=== PATIENT | male | born 1970 | race Caucasian/White ===

== ENCOUNTER 2017-10-16 08:57 | Day surgery (SDC) | payer OTHER ==
[~2017-10-16] VITALS: Ht 182.9 cm; Wt 71.3 kg
[~2017-10-16 08:57] MED LIST: ACET325 PO; ALBU90I INH; ALBU90OI INH; AMOCLA500 PO; AMOCLA875 PO; AMOX500 PO; AZIT100SU PO; AZIT500 PO; BENZ100A PO; CEPH500 PO; CIPR500 PO; CRUTCH4 USE; CYCL10 PO; Cipro500 MG PO; ERYT.5TO OS; Flagyl500 MG PO; HYDACE5 PO; HYDGUAL120 PO; IBUP400 PO; IBUP600 PO; IBUP800 PO; Monodox100 MG PO; NAPR500 PO; NEOCOLOTSU BOTHEARS; Norco 10-325 T1 EACH PO; Norco 5-325 Ta1 EACH PO; ONDA4 PO; PENVK500 PO; PRED20 PO; PROM25 PO; Pepto-Bism525 MG/15 PO; Percocet 10-321 EACH PO; Prednisone20 MG PO; RXHYDGUAS PO; SPACE CHAMBER1 EACH MC; SULTRIDS PO; TRAM50 PO; Ultram50 MG PO
== END 2017-10-16 15:20 | disposition home or self-care (01) ==
LOC: ORSCSDS 08:57
PROVIDERS: Internal Medicine Gastroenterology
PROC: 0DBH8ZX Excision of Cecum, Via Natural or Artificial Opening Endoscopic, Diagnostic (ICD-10-PCS; principal; 2017-10-16 14:30)
DX: Z12.11 Encounter for screening for malignant neoplasm of colon (principal); D12.0 Benign neoplasm of cecum; K64.8 Other hemorrhoids; K57.30 Diverticulosis of large intestine without perforation or abscess without bleeding; F17.210 Nicotine dependence, cigarettes, uncomplicated; Z86.010 Personal history of colon polyps; Z79.899 Other long term (current) drug therapy
CPT/HCPCS: 88305; J7120

== ENCOUNTER 2019-12-01 16:35 | Inpatient (IN) | payer OTHER ==
[~2019-12-01] VITALS: Ht 177.8 cm; Wt 71.2 kg
[2019-12-01 17:26] LABS: BASOPHILS ABSOLUTE AUTO 0.05 K/mm3 (0.00-0.23); BASOPHILS PERCENT AUTO 0 % (0-2); EOSINOPHILS ABSOLUTE AUTO 0.03 K/mm3 (0.00-0.68); EOSINOPHILS PERCENT AUTO 0 % (0-6); Hematocrit 43.4 % (37.0-53.0); Hemoglobin 14.1 g/dL (13.5-17.5); IMMATURE GRAN ABSOLUTE AUTO 0.05 K/mm3 (0.00-0.10); IMMATURE GRAN PERCENT AUTO 0 % (0-1); LYMPHOCYTES ABSOLUTE AUTO 3.73 K/mm3 (0.84-5.20); LYMPHOCYTES PERCENT AUTO 24 % (21-46); MONOCYTES ABSOLUTE AUTO 0.77 K/mm3 (0.16-1.47); MONOCYTES PERCENT AUTO 5 % (4-13); Mean Corpuscular HGB 28.5 pg (26.0-34.0); Mean Corpuscular HGB Conc 32.5 g/dL (31.5-36.5); Mean Corpuscular Volume 88 fL (80-100); Mean Platelet Volume 8.9 fL (9.1-12.4); NEUTROPHILS ABSOLUTE AUTO 11.09 K/mm3 (1.96-9.15); NEUTROPHILS PERCENT AUTO 71 % (41-73); Platelet Count 397 K/mm3 (150-400); RDW Standard Deviation 48.4 fL (35.1-46.3); Red Blood Cell Count 4.95 M/mm3 (4.30-5.90); White Blood Cell Count 15.72 K/mm3 (4.00-11.30)
[2019-12-01 17:27] LABS: Source, Urine Catheter
[2019-12-01 17:31] LABS: Appearance, Urine Clear (Clear); Bilirubin, Urine Neg (Neg); Blood, Urine Neg (Neg); Color, Urine Pale Yellow (P-Yellow); Glucose Qualitative, Urine Neg (Neg); Ketones, Urine Neg (Neg); Leukocyte Esterase, Urine Neg (Neg); Nitrite, Urine Neg (Neg); Protein, Urine Neg (Neg); Urobilinogen, Urine NORM (Normal)
[2019-12-01 17:48] LABS: Alanine Aminotransfer (ALT/SGP 43 U/L (12-78); Albumin, Blood 4.1 g/dL (3.4-5.0); Albumin/Globulin Ratio 1.2 (0.8-1.8); Alk Phos 73 U/L (50-136); Anion Gap 6 mmol/L (6-16); Aspartate Aminotrans (AST/SGOT 26 U/L (12-37); Bilirubin, Total 0.1 mg/dL (0.1-1.0); Blood Urea Nitrogen 15 mg/dL (8-24); Bun/Creatinine Ratio 15.8 (12.0-20.0); CO2, Blood 19 mmol/L (21-32); Calcium, Blood 8.8 mg/dL (8.5-10.1); Chloride, Blood 120 mmol/L (98-108); Creatinine, Blood 0.95 mg/dL (0.60-1.20); Globulin, Blood 3.4 g/dL (2.2-4.0); Glomerular Filtration Rate >60 (60-); Glucose, Blood 131 mg/dL (70-99); Potassium, Blood 4.6 mmol/L (3.5-5.5); Sodium, Blood 145 mmol/L (136-145); Total Protein, Blood 7.5 g/dL (6.4-8.2)
[2019-12-01 17:55] LABS: Ethanol (Alcohol), Blood, Med 363 mg/dL
[2019-12-01 17:56] LABS: Salicylate 2.4 mg/dL (2.8-20.0)
[2019-12-01 17:57] LABS: Acetaminophen, Random <2.0 ug/mL (10.0-30.0)
[2019-12-01 20:09] LABS: PCO2 Arterial 36.9 mmHg (35-45); PO2 Arterial 105 mmHg (80-100)
[2019-12-01 20:10] LABS: pH Blood Arterial 7.27 (7.35-7.45)
--- NOTE | 2019-12-01 20:50 | NUR ---
PT ARRIVES TO ICU 10 FROM ER POST INTUBATION AND TRAUMA SYSTEM ENTRY. HE IS SEDATED WITH PROPOFOL AT 40 MCG/KG/MIN AND PER HOPPER FILLER, RECEIVED ATIVAN AND FENTANYL 50 MCG PRIOR TO TRANSFER FROM ER TO ROOM HE AWOKE IN ER AND WAS EXTREMTELY AGITATED NEARLY EXTUBATING HIMSELF. ON ARRIVAL TO ROOM HE APPEARS CALM WITH RELAXED EXTREMITIES HOWEVER WITH TRANSFER TO BED HE BECOMES AGITATED, REACHING FOR ET TUBE AND THRASHING IN BED, FENTANYL ADMIN BY HOPPER FILLER. VENT SETTINGS ARE AC 16, TV 500, PEEP 5 AND FIO2 30%, LUNGS ARE DIM OTHERWISE CLEAR THROUGHOUT, SATS ARE UPPER 90S, RATE 16 FOLLOWING TRANSFER TO BED, 8.0 ETT 27 CM AT TEETH. HRR, SINUS NOTED ON MONITOR, RATE 70S, SBP 95, MAP MAINTAINED GREATER THAN 65 AT THIS TIME, WILL MONITOR AND TITRATE PROPOFOL DOWN TOLERATED. OG IN PLACE, CLAMPED AT THIS TIME, BROWN DRAINAGE IS NOTED IN TUBING, HYPOACTIVE BOWEL TONES PRESENT X 4, ABD SOFT, NO GRIMACING WITH PALPATION. TEMP PROBE LEACH IN PLACE DRIANING CLEAR YELLOW URINE TO GRAVITY. BILAT SOFT WRIST RESTRAINTS IN PLACE, SKIN TO HANDS PWD, BRISK CAP REFILL, WILL CONT TO MONITOR.
[2019-12-01 21:05] LABS: U Amphetamine Screen Not Detected; U Barbituate Screen Not Detected; U Benzodiazapine Screen Not Detected; U Buprenorphine Screen Not Detected; U Cannabinoids Screen Not Detected; U Cocaine Screen Not Detected; U Methadone Screen Not Detected; U Methamphetamine Screen Not Detected; U Opiates Screen Not Detected; U Oxycodone Screen Not Detected; U Phencyclidine Screen Not Detected; U Propoxyphene Screen Not Detected
[2019-12-01 23:22] LABS: PCO2 Venous 41.3 mmHg (38-42); PO2 Venous 146 mmHg (38-42); pH Blood Venous 7.24 (7.34-7.37)
[2019-12-01 23:23] LABS: Base Excess Venous -9.9 mmol/L
[2019-12-02 00:15] LABS: Anion Gap 4 mmol/L (6-16); Blood Urea Nitrogen 13 mg/dL (8-24); Bun/Creatinine Ratio 15.9 (12.0-20.0); CO2, Blood 20 mmol/L (21-32); Calcium, Blood 7.4 mg/dL (8.5-10.1); Chloride, Blood 123 mmol/L (98-108); Creatinine, Blood 0.82 mg/dL (0.60-1.20); Glomerular Filtration Rate >60 (60-); Glucose, Blood 115 mg/dL (70-99); Salicylate <1.7 mg/dL (2.8-20.0); Sodium, Blood 147 mmol/L (136-145)
[2019-12-02 06:13] LABS: BASOPHILS ABSOLUTE AUTO 0.03 K/mm3 (0.00-0.23); BASOPHILS PERCENT AUTO 0 % (0-2); EOSINOPHILS ABSOLUTE AUTO 0.07 K/mm3 (0.00-0.68); EOSINOPHILS PERCENT AUTO 1 % (0-6); Hematocrit 38.2 % (37.0-53.0); Hemoglobin 12.2 g/dL (13.5-17.5); IMMATURE GRAN ABSOLUTE AUTO 0.05 K/mm3 (0.00-0.10); IMMATURE GRAN PERCENT AUTO 0 % (0-1); LYMPHOCYTES ABSOLUTE AUTO 2.55 K/mm3 (0.84-5.20); LYMPHOCYTES PERCENT AUTO 18 % (21-46); MONOCYTES PERCENT AUTO 8 % (4-13); Mean Corpuscular HGB 28.4 pg (26.0-34.0); Mean Corpuscular HGB Conc 31.9 g/dL (31.5-36.5); Mean Corpuscular Volume 89 fL (80-100); Mean Platelet Volume 8.6 fL (9.1-12.4); NEUTROPHILS ABSOLUTE AUTO 10.37 K/mm3 (1.96-9.15); NEUTROPHILS PERCENT AUTO 73 % (41-73); Platelet Count 312 K/mm3 (150-400); RDW Coefficient Variation 15.8 % (11.7-14.2); RDW Standard Deviation 51.6 fL (35.1-46.3); White Blood Cell Count 14.27 K/mm3 (4.00-11.30)
[2019-12-02 06:27] LABS: International Normalized Ratio 0.94; Prothrombin Time Results 10.1 Sec (9.7-11.5)
[2019-12-02 06:34] LABS: Alanine Aminotransfer (ALT/SGP 39 U/L (12-78); Albumin, Blood 3.1 g/dL (3.4-5.0); Albumin/Globulin Ratio 1.1 (0.8-1.8); Alk Phos 53 U/L (50-136); Anion Gap 3 mmol/L (6-16); Aspartate Aminotrans (AST/SGOT 28 U/L (12-37); Bilirubin, Total 0.1 mg/dL (0.1-1.0); Blood Urea Nitrogen 11 mg/dL (8-24); Bun/Creatinine Ratio 15.8 (12.0-20.0); CO2, Blood 23 mmol/L (21-32); Calcium, Blood 7.5 mg/dL (8.5-10.1); Chloride, Blood 119 mmol/L (98-108); Globulin, Blood 2.9 g/dL (2.2-4.0); Glomerular Filtration Rate >60 (60-); Glucose, Blood 103 mg/dL (70-99); Magnesium, Blood 2.4 mg/dL (1.6-2.4); Potassium, Blood 3.9 mmol/L (3.5-5.5); Sodium, Blood 145 mmol/L (136-145)
--- NOTE | 2019-12-02 06:42 | NUR ---
PT ARRIVED TO UNIT SEDATED AND INTUBATED WITH PROPOFOL AT 40 MCG/KG/MIN, WAS AGITATED AND THRASHING IN BED ON TRANSFER FROM [facility], POISER BALANCE MEDICATED PT WITH FENTANYL AND PROPOFOL INITIALLY INCREASED TO 50 MCG/KG/MIN, BLOOD PRESSURES DID NOT TOLERATE DOSE AND PROPFOL WAS TITRATED DOWN IN INCREMENTS OF 5-10 MCG/MIN TO 15 MCG/MIN, PT TOLERATED THIS DOSE FOR APPROXIMATELY 45 MINUTES PRIOR TO SUDDEN INCREASE IN AGITATION AND THRASHING, PULLING HARD AGAINST WRIST RESTRAINTS AND MAKING ATTEMPTS TO REACH FOR ETT, ATIVAN ADMINISTERED AND PROPOFOL HAS BEEN TITRATED UP SLOWLY TO 70 MCG/KG/MIN OF THIS TIME. FOLLOWING THIS EPISODE, PT HAS RECEIVED ATIVAN AND FENTANYL EVERY 2 HOURS PER ORDERS, ALTERNATING HOURS OF ADMINISTRATION. VENT SETTINGS CONTINUE AC 16, TV 500, FIO2 30% AND PEEP 5, SATS MAINTAIN UPPER 90S AND PT RATE 16-20. SINUS RHYTHM CONTINUES, RATE 70-90S, PRESSURES IMPROVING, SKIN REMAINS PWD, NO EDEMA IS NOTED. HYPOACTIVE BOWEL TONES CONT, OG REMAINS IN PLACE, NO GRIMACING WITH PALPATION. TEMP PROBE LEACH DRAINING CLEAR YELLOW URINE TO GRAVITY.
[2019-12-02 07:22] LABS: PCO2 Arterial 34.8 mmHg (35-45); PO2 Arterial 87.1 mmHg (80-100); pH Blood Arterial 7.36 (7.35-7.45)
--- NOTE | 2019-12-02 07:33 | NUR ---
ASSUMED CARE RECEIVED REPORT FROM AVIVA DOTSON. PT IS LYING IN BED INTUBATED 8.0 ETT, 28 AT THE TEETH. VENT SETTINGS: AC16/500/5/30%. CURRENTLY PROPOFOL IS INFUSING AT 70 MCG/KG/MIN, AND LR AT 100 ML/HR. UPON STARTING MY SHIFT THE PT WAS AGITATED AND THRASHING IN BED, HE RECEIVED ATIVAN FROM THE [facility] NURSE, AND THEN RECEIVED SOME FENTANYL FROM ME SHORTLY AFTER. CURRENTLY CALM, BUT RESPONSIVE TO ANY NOXIOUS OR (LOUD) VERBAL STIMULI. HE IS BREATHING OVER THE VENT WITH A RR OF 21-22. PT IS CURRENTLY IN SINUS RHYTHM WITH A RATE IN THE 90's. BP IS STABLE. PT HAS TEMP OF 99.5. PT HAS PATENT LEACH, DRAINING YELLOW/GREEN URINE. HE IS RESTRAINED WITH BILATERAL SWB. BED IS LOW AND LOCKED.
--- NOTE | 2019-12-02 10:59 | NUR ---
UPDATE START OF SHIFT TILL ABOUT 929 PT WAS AGITATED AND THRASHING IN BED DESPITE PROPOFOL AT 70MCG/KG/MIN, AND HIS PRN FENTANYL AND ATIVAN IV. I TALKED TO DR. DAILEY FOR A PRECEDEX GTTP WHICH WE STARTED AND TITRATED UP TO 0.6 MCG/KG/HR, UNTIL HE BECAME HYPOTENSIVE, THEN I WENT DOWN TO 0.5 MCG/KG/HR, AND DOWN TITRATED THE PROPOFOL. HE IS CURRENTLY AT 45 MCG/KG/MIN. PT WAS FEBRILE THIS MORNING WITH A TEMP OF 99.5, I PLACED A FAN ON HIM, AND ALONG WITH INCREASING SEDATION - HE COOLED OFF WELL. HE SEEMS TO HAVE BROKEN A TOOTH (PRIOR TO THIS SHIFT - PER DR. DAILEY, NOT SURE WHEN), WHICH MAY BE A REASON WHY HE IS AGITATED. FENTANYL WAS GIVEN TWICE ALREADY, AND DR. DAILEY INCREASED THE DOSE AND FREQUENCY.
--- NOTE | 2019-12-02 16:02 | NUR ---
UPDATE/SKIN/AGITATION-SEDATION VIDYA, THE RT, AND I DECIDED TO CHANGE OUT THE ETT STABILIZATION DEVICE DUE TO THE ABRASIONS/WOUNDS/SKIN ISSUES ON HIS OUTER-UPPER LIP, LEFT CHEEK AND INNER-UPPER LIP. WHEN WE CHANGED IT (PICS IN CHART) THE CUTS/ABRASIONS/WOUNDS(?) WERE PRETTY "FRESH", WHAT APPEARS TO BE PURULENT DRAINAGE WAS OOZING OUT OF THE INNER-UPPER LIP CUT. THE OUTER-UPPER LIP ONE WAS BLEEDING A LITTLE BIT, MOST LIKELY DUE TO THE PROCESS OF REMOVING THE OLD STABILIZATION DEVICE, AND CLEANING THE AREA. I HAD TO SHAVE AND WASH THE AREA, HIS MUSTACHE WAS VERY CRUSTY/ROCK HARD WITH DRIED BLOOD. IT WAS A VERY MOIST AREA AROUND IT, HOWEVER, FROM SALIVA, SWEAT, BLOOD AND WOUND EXUDATE. I APPLIED ANTIBIOTIC CREAM TO EACH OF THE ABOVE LISTED WOUNDS. I THEN PUT GAUZE ON THE UPPER LIP A BARRIER FROM THE NEW ETT STABILIZATION DEVICE. PT WAS PREMEDICATED WITH 100MCG FENT, AND 2MG ATIVAN. HE STAYED RELATIVELY STILL FOR THE 'PROCEDURE'. TOWARDS THE END HE STARTED TO GET RESTLESS, AND AGITATED. AFTER LEAVING HIM ALONE FOR A BIT - HE CALMED DOWN. WILL PASS ALONG TO BIOMEDICAL EQUIPMENT TECH THAT IT WOULD BE IMPORTANT TO KEEP AN EYE ON THESE WOUNDS AND TO CLEAN WITH SWITCH OUTS OF THE ETT STABILIZATION DEVICE.
--- NOTE | 2019-12-02 17:00 | NUR ---
UPDATE TEMP IS 101.3, AND IS MOVING UP AND DOWN SORT OF QUICKLY. I DID A TEMPORAL TEMP AND IT WAS 99.2. PT DOESN'T FEEL 'THAT WARM'. BUT IS A LITTLE FLUSHED, AND MOIST FROM SWEAT. I PUT SOME ICE PACKS IN HIS AXILLARY AREA, AND LOWER ABDOMEN, ALONG WITH A 'MAKESHIFT AC' WHICH INCLUDES A TUB OF ICE WATER AND A FAN THAT BLOWS THE COOL AIR TOWARDS THE PATIENT... WILL CONTINUE TO MONITOR.
--- NOTE | 2019-12-02 18:16 | NUR ---
SHIFT SUMMARY PT REMAINS INTUBATED ON VENTILATOR: SPONTANEOUS 01/27, 30% TAKING ADEQUATE TIDAL VOLUMES, WITH A NORMAL RR (12-22). IT HAS BEEN A BALANCE GAME FOR MAJORITY OF DAY MAINTAINING MAP > 65 WITH ADEQUATE SEDATION. SINCE EARLY AFTERNOON (~1300) PT HAS HAD ADEQUATE MAP, WITH SUFFICIENT SEDATION WITH PROPOFOL (45-50 MCG/KG/HR), AND PRECEDEX (0.6-0.7 MCG/KG/HR). CURRENTLY 45, AND 0.7 RESPECTIVELY. NOW THE ISSUE IS HIS TEMPERATURE. AROUND 1300 HIS TEMP INCREASED BACK TO 99.1 (AFTER BEING NORMOTHERMIC SINCE AROUND 1000 THIS MORNING). FROM THERE HE STEADILY INCREASED TO WHAT HE CURRENTLY IS NOW: 102.2. DURING THAT TIME - I APPLIED ICE PACKS: ONE NEAR HIS LOWER ABDOMEN, AND IN HIS AXILLARY AREAS. I HAVE A COLD RAG ON HIS HEAD, AND A MAKESHIFT AC FAN BLOWING ON HIM (ICE WATER IN A TUB, WITH A FAN BLOWING IT AT THE PT). I ALSO GOT AN ORDER AND GAVE IT TO HIM PER TUBE (650MG) ABOUT 40-45MINS AGO WITH NO EFFECT. ASHLIE AWARE. HE GOT A BANANA BAG TODAY. LR MAINTENCE FLUIDS WERE DC'D WHEN THE BANANA BAG STARTED. HES MAKING ADEQUATE URINE OUTPUT. HE HAS STRONG PEDAL PULSES, AND EXTREMETIES ARE WARM (NORMAL) TO TOUCH. EXTERNALLY HE DOESN'T FEEL LIKE HE HAS A FEVER. WE CHANGED THE ETT STABILIZATION DEVICE, AND DID SOME WOUND CARE ( WELL TAKEN PICTURES) OF THE WOUNDS ON HIS LIP, IN HIS LIP, AND ON HIS LEFT CHEEK. I WILL PASS ON TO NOC SHIFT NURSE TO KEEP THIS GOING. BED IS LOW AND LOCKED.
--- NOTE | 2019-12-02 20:10 | NUR ---
ASSUMED CARE AT 1915 PT INTUBATED AND LAYING IN BED. SPONTANIOUS VENT SETTING PS 8, PEEP 5. FIO2 30. PROPOFOL AT 45 MCG/KG/MIN. PRECIDEX 0.7 MCG/KG/HR. VHP 25 ML/HR FLUSHING 30ML Q4HR. LEACH PATENT AND DRAINING TO GRAVITY. PT EASILY AROUSABLE AND AGITATED AND PULLING AGENST BILATERAL SOFT RESTRAINTS. PT ENDED WITH ONE LEG OVER THE SIDE OF THE BED. PT MEDICATED WITH PRN FOR AGITATION.
--- NOTE | 2019-12-03 01:10 | NUR ---
AGITATION AT APROX. 0050 PT WAS FOUND EXTREMELY AGITATED AND PULLING AT RESTRAINTS AND TUBES. OG TUBE WAS FOUND ON THE FLOOR. THE VENTILATOR TUBEING BECAME DISCONNECTED FROM THE ET TUBE. PROPOFOL INCREASED TO 70 MCG/KG/MIN AT THIS TIME. PT MEDICATED WITH 2 MG OF ATIVAN AND 100MCG OF FENTANYL. DR HERNANDEZ NOTIFIED. OREDERS RECIEVED TO INCREASE PRECEDEX TO 1.4 MCG/KG/HR IF NEEDED. ALSO OK TO LEAVE OG OUT AT THIS TIME. PLAN TO POSSIBLY EXTUBATE IN AM.
[2019-12-03 03:56] LABS: BASOPHILS ABSOLUTE AUTO 0.04 K/mm3 (0.00-0.23); BASOPHILS PERCENT AUTO 0 % (0-2); EOSINOPHILS ABSOLUTE AUTO 0.02 K/mm3 (0.00-0.68); EOSINOPHILS PERCENT AUTO 0 % (0-6); Hematocrit 37.6 % (37.0-53.0); Hemoglobin 12.3 g/dL (13.5-17.5); IMMATURE GRAN ABSOLUTE AUTO 0.12 K/mm3 (0.00-0.10); IMMATURE GRAN PERCENT AUTO 1 % (0-1); LYMPHOCYTES ABSOLUTE AUTO 1.35 K/mm3 (0.84-5.20); LYMPHOCYTES PERCENT AUTO 7 % (21-46); MONOCYTES ABSOLUTE AUTO 1.29 K/mm3 (0.16-1.47); MONOCYTES PERCENT AUTO 6 % (4-13); Mean Corpuscular HGB 28.5 pg (26.0-34.0); Mean Corpuscular HGB Conc 32.7 g/dL (31.5-36.5); Mean Corpuscular Volume 87 fL (80-100); Mean Platelet Volume 8.8 fL (9.1-12.4); NEUTROPHILS ABSOLUTE AUTO 17.91 K/mm3 (1.96-9.15); NEUTROPHILS PERCENT AUTO 86 % (41-73); Platelet Count 267 K/mm3 (150-400); RDW Coefficient Variation 15.1 % (11.7-14.2); RDW Standard Deviation 48.7 fL (35.1-46.3); Red Blood Cell Count 4.31 M/mm3 (4.30-5.90); White Blood Cell Count 20.73 K/mm3 (4.00-11.30)
[2019-12-03 04:18] LABS: Anion Gap 4 mmol/L (6-16); Blood Urea Nitrogen 12 mg/dL (8-24); Bun/Creatinine Ratio 15.7 (12.0-20.0); CO2, Blood 25 mmol/L (21-32); Calcium, Blood 7.7 mg/dL (8.5-10.1); Chloride, Blood 109 mmol/L (98-108); Creatinine, Blood 0.77 mg/dL (0.60-1.20); Glomerular Filtration Rate >60 (60-); Glucose, Blood 136 mg/dL (70-99); Magnesium, Blood 2.2 mg/dL (1.6-2.4); Phosphorus, Blood 2.7 mg/dL (2.5-4.9); Sodium, Blood 138 mmol/L (136-145)
--- NOTE | 2019-12-03 06:01 | NUR ---
END OF SHIFT SUMMARY PT INTUBATED AND LAYING IN BED. VENTILATOR SPONTANIOUS SETTINGS PS 8, PEEP 5, FIO2 30. PROPOFOL INFUSING AT 50 MCG/KG/MIN. PRECIDEX INFUSING AT 1 MCG/KG/HR. VHP NO LONGER INFUSING DUE TO PATIENT PULLING OG TUBE OUT. LEACH PATENT AND DRAINING TO GRAVITY. TEMP MAX 102.9. TEMP NOW 99.5. SBP 70'S-90'S. HR 80'S-90'S. PATIENT MEDICATED WITH 50-100 MCG OF FENTANYL WHEN AGITATED AND PULLING AT RESTRAINTS. WILL CONTINUE TO MONITOR UNTIL REPORT IS GIVEN TO DAY RN.
--- NOTE | 2019-12-03 07:30 | NUR ---
ASSUMED CARE BEDSIDE REPORT RECIEVED. PT IS INTUBATED AND SEDATED. VENT SETTING SPONTANEOUS PRESSURE SUPPORT 8/5, FIO2 30%. PT IS RESTLESS AT TIMES AND THRASHES SIDE TO SIDE IN BED, OTHERWISE PT IS CALM WITH PROPOFOL AT 50 MCG/KG/MIN AND PRECEDEX AT 1 MCG/KG/MIN. NS INFUSING TKO. LEACH TEMP PROBE IN PLACE WITH YELLOW URINE OUTPUT NOTED. SBW RESTRAINTS IN PLACE. PT MOVING ALL EXTREMITIES WELL AND PULLS AT RESTRAINTS. PT WITH ABRASIONS AND SWELLING TO CHEEKS AND UPPER LIP. WILL CONTINUE TO MONITOR.
--- NOTE | 2019-12-03 10:49 | NUR ---
EXTUBATION PT EXTUBATED AT 1040 BY RT ARDEN. PT PLACED ON 2L O2 NC. PT WITH COPIOUS LUNA SECRETIONS. PT ABLE TO COUGH AND CLEAR AIRWAY WELL. SPO2 >94%. PT ORIENTED TO EVENT. PT DENIES SUICIDAL IDEATION AT THIS TIME AND STATES HE WAS NOT ATTEMPTING SUICIDE OR SELF HARM. WILL CONTINUE TO MONITOR. BED ALARM ON.
--- NOTE | 2019-12-03 11:12 | NUR ---
FAMILY UPDATE PT GAVE VERBAL PERMISSION TO UPDATE KENYETTA HULL. KURTIS CALLED AND UPDATED TO PT CONDITION AND PLAN OF CARE. PT REMAINS CALM AND COOPERATIVE AT THIS TIME.
--- NOTE | 2019-12-03 17:47 | NUR ---
SHIFT SUMMARY PT DID WELL THIS SHIFT. PT HAS REMAINED STABLE AFTER EXTUBATION. PT HAS REMAINED ON 2L O2 NC AND HAS BEEN ABLE TO COUGH UP SECRETIONS WELL. PT HAS REMAINED CALM AND COOPERATIVE. PT IMPULSIVE AT TIMES. BED ALARM ON. PRECEDEX INFUSING AT 1 MCG/KG/MIN AND NS TKO. LEACH REMAINS IN PLACE WITH LARGE AMOUNT OF YELLOW URINE OUTPUT NOTED. PT FACIAL WOUNDS REMAIN UNCHANGED AND UPPER LIP SWELLING REMAINS. PT UNABLE TO TOLERATE PO FLUIDS DUE TO FACIAL SWELLING. PT HAS COMPLAINED OF PAIN TO FACE AND STERNUM. PT MED PER EMAR. PT FAMILY KURTIS HAS BEEN UPDATED MULTIPLE TIMES THROUGHOUT THE SHIFT. WILL CONTINUE TO MONITOR AND REPORT OFF TO ONCOMING RN.
--- NOTE | 2019-12-03 19:00 | NUR ---
ASSUMED CARE ASSUMED CARE AT THIS TIME. SLEEPING WHEN UNDISTURBED. ROUSES EASILY TO VERBAL STIMULI. ORIENTED TO SELF, PLACE, MONTH/YEAR. UNSURE OF DATE AND TIME. DOESN'T REMEMBER EVENTS LEADING UP TO COMING TO THE HOSPITAL. DENIES SUICIDAL IDEATION/INTENT. CALM AND COOPERATIVE, BUT DOES BECOME SLIGHTLY ANXIOUS WITH PAIN. PRECEDEX CONTINUES @ 1.0MCG/KG/HR. REPOSITIONS SELF IN BED. C/O PAIN IN BACK/STERNUM AND C/O HEADACHE. DENIES NAUSEA. RESPIATIONS SHALLOW, BUT UNLABORED. MOIST COUGH NOTED. VSS. MONITOR SHOWS NSR, RATE 70s. AFEBRILE. LEACH PATENT AND DRAINING CLEAR YELLOW URINE. SEE SHIFT ASSESSMENT FOR FULL ASSESSMENT.
--- NOTE | 2019-12-03 21:28 | NUR ---
PAIN/URINE OUTPUT PT CONTINUES TO C/O MODERATE PAIN. STATES PAIN MEDICATION HELPS BUT DOESN'T LAST VERY LONG. DR. DAILEY NOTIFIED AND NEW ORDER RECEIVED TO INCREASE FREQUENCY OF FENTANYL TO Q2H PRN. ALSO NOTIFIED OF DECREASE IN URINE OUTPUT AND PT'S INABILITY TO SAFELY TAKE PO FLUIDS. WILL START NS @ 75CC.HR.
[2019-12-04 03:45] LABS: Anion Gap 5 mmol/L (6-16); Blood Urea Nitrogen 8 mg/dL (8-24); Bun/Creatinine Ratio 12.1 (12.0-20.0); CO2, Blood 24 mmol/L (21-32); Calcium, Blood 7.5 mg/dL (8.5-10.1); Chloride, Blood 113 mmol/L (98-108); Creatinine, Blood 0.66 mg/dL (0.60-1.20); Glomerular Filtration Rate >60 (60-); Glucose, Blood 119 mg/dL (70-99); Magnesium, Blood 2.1 mg/dL (1.6-2.4); Phosphorus, Blood 1.9 mg/dL (2.5-4.9); Sodium, Blood 142 mmol/L (136-145)
--- NOTE | 2019-12-04 06:12 | NUR ---
SHIFT SUMMARY NO ACUTE CHANGES DURING SHIFT. SLEPT INTERMITTENTLY AND ROUSES EASILY TO STIMULI. SEDATED WITH PRECEDEX BETWEEN 0.8-1.1MCG/KG/HR. NOW INFUSING @ 0.8MCG/KG/HR. MEDICATED WITH FENTANYL X 3 DOSES FOR C/O 8-04/03 PAIN WITH SOME RELIEF. PT COUGHS WITH ANY PO INTAKE. REMAINED NPO T/O NOC D/T INCREASED ASPIRATION RISK. LEACH PATENT AND DRAINING CLEAR YELLOW URINE. NS INFUSING AT 75CC/HR PER ORDER. BED ALARM REMAINS ON. VSS T/O NOC. WILL REPORT TO ONCOMING RN WHEN AVAILABLE.
--- NOTE | 2019-12-04 07:32 | NUR ---
ASSUMED CARE REPORT RECIEVED. PT IS RESTING QUIETLY UPON ENTERING ROOM. PT AROUSES TO VERBAL STIMULI. PT IS SLOW TO RESPOND AND VOICE IS QUIET. PT ANSWERS QUESTIONS APPROPRIATELY. PT FORGETFUL AT TIMES. PT COMPLAINS OF PAIN TO FACIAL WOUNDS AND STERNUM. VITAL SIGNS STABLE. PT ON ROOM AIR. PRECEDEX INFUSING AT 0.5 MCG/KG/HR AND NS TKO. LEACH IN PLACE DRAINING YELLOW URINE. PT ANXIOUS AT TIMES, OTHERWISE CALM. WILL CONTINUE TO MONITOR.
--- NOTE | 2019-12-04 17:23 | NUR ---
TRANSFER TO [facility] PT DID WELL THIS SHIFT. PRECEDEX HAS REMAINED ON STANDBY SINCE THIS AM. PT HAS REMAINED ALERT, ORIENTED, AND COOPERATIVE. ALL PT BELONGINGS TAKEN WITH PT. PT TRANSFERED OUT TO [facility] 9 AT 1715 WITH OIL BOILER VIA BED.
--- NOTE | 2019-12-04 18:05 | NUR ---
SHIFT NOTE PT ARRIVES FROM ICU THIS EVENING, PT WITH SWELLING TO UPPER AND LOWER LIPS, SCABBING AND ABRASIONS TO FACE T/O. PT WITH PAINFUL SWALLOWING AND CHEWING IS ON PUREE DIET BECAUSE OF FACIAL AND TOOTH TRAUMA. SEVERAL CRACKED TEETH REPORTED. PT HAS NEGATIVE CIWA, STS THAT HE DRINKINS "A FEW TIMES A WEEK", STS THAT HE HAS NOT HAD ANY WITHDRAWLS IN HIS LIFE. PT WITH SLIGHT FEVER WAS TREATED WITH TYLENOL SUSPENSION UPON ARRIVAL FROM ICU
--- NOTE | 2019-12-04 18:15 | NUR ---
PT'S FIANCE CALLED AND ASKED THAT HIS CROSS NECKLACE AND BELONGINGS TO HER AT THE TENT. PT STS THAT HE WILL BE KEEPING CROSS TAKES HIS CROSS OUT OF BELONINGS TO KEEP WITH HIM IN THE ROOM
[2019-12-05 05:06] LABS: BASOPHILS ABSOLUTE AUTO 0.01 K/mm3 (0.00-0.23); BASOPHILS PERCENT AUTO 0 % (0-2); EOSINOPHILS ABSOLUTE AUTO 0.19 K/mm3 (0.00-0.68); EOSINOPHILS PERCENT AUTO 2 % (0-6); Hematocrit 34.4 % (37.0-53.0); Hemoglobin 11.8 g/dL (13.5-17.5); IMMATURE GRAN ABSOLUTE AUTO 0.03 K/mm3 (0.00-0.10); IMMATURE GRAN PERCENT AUTO 0 % (0-1); LYMPHOCYTES ABSOLUTE AUTO 1.48 K/mm3 (0.84-5.20); LYMPHOCYTES PERCENT AUTO 14 % (21-46); MONOCYTES ABSOLUTE AUTO 0.79 K/mm3 (0.16-1.47); MONOCYTES PERCENT AUTO 8 % (4-13); Mean Corpuscular HGB 29.4 pg (26.0-34.0); Mean Corpuscular HGB Conc 34.3 g/dL (31.5-36.5); Mean Corpuscular Volume 86 fL (80-100); Mean Platelet Volume 9.1 fL (9.1-12.4); NEUTROPHILS ABSOLUTE AUTO 7.93 K/mm3 (1.96-9.15); NEUTROPHILS PERCENT AUTO 76 % (41-73); Platelet Count 249 K/mm3 (150-400); RDW Coefficient Variation 14.9 % (11.7-14.2); RDW Standard Deviation 46.9 fL (35.1-46.3); Red Blood Cell Count 4.01 M/mm3 (4.30-5.90); White Blood Cell Count 10.43 K/mm3 (4.00-11.30)
--- NOTE | 2019-12-05 05:18 | NUR ---
SHIFT SUMMARY: PATIENT EXIBITING SIGNS OF ANXIETY AND RESTLESSNESS (SEE CIWA), ATIVAN GIVEN WITH SUCCESS (SEE EMAR). PATIENT REMAINS ALERT AND ORIENTED, COOPERATIVE WITH CARE AND VSS. CALL LIGHT WITHIN REACH, BED LOW AND LOCKED WITH EXIT ALARM ON.
[2019-12-05 05:25] LABS: Anion Gap 6 mmol/L (6-16); Blood Urea Nitrogen 9 mg/dL (8-24); Bun/Creatinine Ratio 13.9 (12.0-20.0); CO2, Blood 21 mmol/L (21-32); Calcium, Blood 7.8 mg/dL (8.5-10.1); Chloride, Blood 115 mmol/L (98-108); Creatinine, Blood 0.65 mg/dL (0.60-1.20); Glomerular Filtration Rate >60 (60-); Glucose, Blood 100 mg/dL (70-99); Magnesium, Blood 2.3 mg/dL (1.6-2.4); Phosphorus, Blood 2.1 mg/dL (2.5-4.9); Potassium, Blood 3.9 mmol/L (3.5-5.5); Sodium, Blood 142 mmol/L (136-145)
--- NOTE | 2019-12-05 16:53 | NUR ---
SHIFT NOTE PT HAS BEEN RESTING IN BED W/O DISTRESS T/O THE DAY. PT HAS BEEN UP TO BATHROOM WITH SBA. PT REPORTS GREAT IMPROVEMENT OF PAIN TO FACE. SWELLING AND REDNESS OF UPPER LIP HAS SUBSIDED WELL. PT HAS BEEN TRANSITIONED TO BITE SIZE DIET FROM PUREE. PT IS ABLE TO TAKE PILLS WITH WATER WHOLE NOW ALSO SINCE PAIN HAS RESOLVED. PT IS A/O X3, ANSWERING QUESTIONS APPROPRIATELY IN FULL SENTENCES. PT WITH CIWA OF 2, DOES HAVE SOME INTERMITTENT ANXIETY WHICH IS NOT CLEAR IF IT IS RELATED TO ANXIETY OF BEING IN THE HOSPITAL. NS INFUSING AT 75ML/HR PER ORDER.
--- NOTE | 2019-12-05 17:55 | NUR ---
REPORT TO JOLYNN
--- NOTE | 2019-12-05 18:20 | NUR ---
PT TRANSFERRED TO ROOM 309. PT UP WITH STEADY GAIT IN ROOM. AXO PLEASANT AND COOPERATIVE WITH CARE. CIWA 0 AT TIME OF TRANSFER. IV FLUIDS INFUSING PER EMAR. REPORT RECIEVED FROM DIA AT [id number].
--- NOTE | 2019-12-06 04:25 | NUR ---
SHIFT SUMMARY ASSUMED CARE OF PT AT 1900. PT IS A/OX4, DENIES N.T IN EXTREMITES. HEART SOUNDS REGULAR, LUNG SOUNDS CLEAR, DENIES SOB/CP AT THIS TIME. PT HAS WOUNDS ON FACE AND UPPER LIP. PT TOOK A SHOWER TONIGHT. PT IS INDEPENDENT IN ROOM. NO ACUTE EVENTS DURING THE NIGHT. PT SLEPT T/O THE NIGHT. CALL LIGHT IN REACH, BED IN LOWEST POSTION, WILL CONTINUE TO MONITOR UNTIL DAYSHIFT NURSE ARRIVES.
[2019-12-06] MEDS ORDERED: GABA100 PO (14:39)
[2019-12-06] MEDS ORDERED: Nicoderm Cq1 EAC1 TOP (14:40)
--- NOTE | 2019-12-06 15:11 | NUR ---
1500 PT TO DISCHARGE HOME. MEDS FAXED TO PHARMACY OF CHOICE. IV REMOVED. PT EDUCATED ON NEW MEDS. PT WAS ABLE TO WALK OUT , NO WC NEEDED.
== END 2019-12-06 15:07 | disposition home or self-care (01) | DRG 896 ==
LOC: ER 16:35 → ICUW 16:36 → ER 20:27 → ICUW 20:48 → MEDS 12-02 09:49 → ICUW 12-02 09:49 → PCU 12-04 16:52 → MEDS 12-05 17:55
PROVIDERS: Internal Medicine; Internal Medicine Pulmonary Disease; Nurse Practitioner Acute Care; Physician Assistant; ADMIT Internal Medicine
PROC: 0BH17EZ Insertion of Endotracheal Airway into Trachea, Via Natural or Artificial Opening (ICD-10-PCS; principal; 2019-12-02)
PROC: 5A1945Z Respiratory Ventilation, 24-96 Consecutive Hours (ICD-10-PCS; 2019-12-02)
DX: F10.231 Alcohol dependence with withdrawal delirium (principal); J96.01 Acute respiratory failure with hypoxia; G92 Toxic encephalopathy; J69.0 Pneumonitis due to inhalation of food and vomit; S02.40DA Maxillary fracture, left side, initial encounter for closed fracture; F17.210 Nicotine dependence, cigarettes, uncomplicated; W19.XXXA Unspecified fall, initial encounter; Y90.8 Blood alcohol level of 240 mg/100 ml or more; R50.9 Fever, unspecified
CPT/HCPCS: 31500; 31720; 36415; 36600; 51702; 70450; 70486; 71045; 72125; 80048; 80053; 81003; 82803; 82947; 83690; 83735; 84100; 85025; 85610; 87040; 87070; 87081; 87205; 90471; 90714; 92526; 92610; 93005; 93010; 94002; 94003; 94640; 96361-59; 96365-59; 96372-59; 96375; 96375-59; 96376; 96376-59; 99285-25; C9113; G0378; G0480; J0295; J0330; J1650; J1885; J2060; J2250; J2405; J2704; J3010; J3411; J3475; J7030; J7042; J7050; J7060; J7120; L0160

== ENCOUNTER 2020-09-26 08:39 | Emergency (ER) | payer OTHER ==
[~2020-09-26] VITALS: Ht 185.4 cm; Wt 77.1 kg
[~2020-09-26 08:39] MED LIST changes: +GABA100 PO; +Nicoderm Cq1 EAC1 TOP
[2020-09-26] MEDS ORDERED: OXYC5 PO (09:05)
[2020-09-26] MEDS ORDERED: Ciprofloxacin2.5 ML LEFTEAR (09:05)
[2020-09-26] MEDS ORDERED: Bactrim Ds Tab1 EACH PO (09:05)
== END 2020-09-26 09:18 | disposition home or self-care (01) ==
LOC: ER 08:39
DX: H66.92 Otitis media, unspecified, left ear (principal); F17.210 Nicotine dependence, cigarettes, uncomplicated
CPT/HCPCS: 96372; 99282; A9270; J1170

== ENCOUNTER 2021-03-12 12:41 | Emergency (ER) | payer OTHER ==
[~2021-03-12] VITALS: Ht 185.4 cm; Wt 79.4 kg
[~2021-03-12 12:41] MED LIST changes: +Bactrim Ds Tab1 EACH PO; +Ciprofloxacin2.5 ML LEFTEAR; +OXYC5 PO
[2021-03-12] MEDS ORDERED: HYDR1TAB94 PO (13:15)
[2021-03-12] MEDS ORDERED: AMOCLA875 PO (13:15)
== END 2021-03-12 13:26 | disposition home or self-care (01) ==
LOC: ER 12:41
DX: K02.9 Dental caries, unspecified (principal); K03.81 Cracked tooth
CPT/HCPCS: 99283; A9270

== ENCOUNTER 2021-10-25 17:07 | Emergency (ER) | payer OTHER ==
[~2021-10-25] VITALS: Ht 188 cm; Wt 81.7 kg
[~2021-10-25 17:07] MED LIST changes: +HYDR1TAB94 PO
[2021-10-25] MEDS ORDERED: CIPRODEX OTIC7.5 M1 BOTHEARS (18:39)
[2021-10-25] MEDS ORDERED: Cipro500 MG PO (18:39)
[2021-10-25] MEDS ORDERED: HYDR1TAB94 PO (18:48)
== END 2021-10-25 18:52 | disposition home or self-care (01) ==
LOC: ER 17:07
DX: H61.003 Unspecified perichondritis of external ear, bilateral (principal); H66.93 Otitis media, unspecified, bilateral; F17.210 Nicotine dependence, cigarettes, uncomplicated
CPT/HCPCS: A9270

== ENCOUNTER 2022-04-12 10:07 | Day surgery (SDC) | payer OTHER ==
[~2022-04-12] VITALS: Ht 188 cm; Wt 73.4 kg
[~2022-04-12 10:07] MED LIST changes: +CIPRODEX OTIC7.5 M1 BOTHEARS
== END 2022-04-12 12:55 | disposition home or self-care (01) ==
LOC: ORSCSDS 10:07
PROVIDERS: Internal Medicine Gastroenterology
PROC: 0DB68ZX Excision of Stomach, Via Natural or Artificial Opening Endoscopic, Diagnostic (ICD-10-PCS; principal; 2022-04-12 10:15)
PROC: 0DBN8ZX Excision of Sigmoid Colon, Via Natural or Artificial Opening Endoscopic, Diagnostic (ICD-10-PCS; principal; 2022-04-12 10:15)
PROC: 0DB98ZX Excision of Duodenum, Via Natural or Artificial Opening Endoscopic, Diagnostic (ICD-10-PCS; principal; 2022-04-12 10:15)
PROC: 0DBL8ZX Excision of Transverse Colon, Via Natural or Artificial Opening Endoscopic, Diagnostic (ICD-10-PCS; principal; 2022-04-12 10:15)
DX: R10.84 Generalized abdominal pain (principal); K29.80 Duodenitis without bleeding; K44.9 Diaphragmatic hernia without obstruction or gangrene; D12.3 Benign neoplasm of transverse colon; K63.5 Polyp of colon; K64.8 Other hemorrhoids; R11.2 Nausea with vomiting, unspecified; K92.1 Melena; Z86.010 Personal history of colon polyps
CPT/HCPCS: 88305; 88342; J2250; J2704; J7120

== ENCOUNTER 2025-06-01 07:45 | Emergency (ER) | payer OTHER ==
[~2025-06-01] VITALS: Ht 182.9 cm; Wt 79.4 kg
[~2025-06-01 07:45] MED LIST changes: +NEOPOLHCSU BOTHEARS
[2025-06-01 08:03] VITALS: BP 146/106
[2025-06-01] MEDS ORDERED: HYDROmorphone HCl/Pf 1MG SYR IM ONE (08:20)
[2025-06-01] MEDS ORDERED: Norco 5-325 Ta1 EACH PO (08:50)
== END 2025-06-01 09:10 | disposition home or self-care (01) ==
LOC: ER 07:45
DX: S43.102A Unspecified dislocation of left acromioclavicular joint, initial encounter (principal); F17.200 Nicotine dependence, unspecified, uncomplicated; W18.2XXA Fall in (into) shower or empty bathtub, initial encounter
CPT/HCPCS: 73030; 96372; 99283-25; J1171